=== PATIENT | male | born 1990 | race African-American/Black ===

== ENCOUNTER 2016-08-10 21:36 | Emergency (ER) | payer OTHER ==
[2016-08-10 21:49] VITALS: BP 121/79
--- NOTE | 2016-08-10 22:27 | ED EYE COMPLAINT ---
History of Present Illness General Chief Complaint: Eye Problems Stated Complaint: L EYE REDNESS/PAINFUL Source: patient, family Exam Limitations: no limitations Vital Signs & Intake/Output Vital Signs & Intake/Output Vital Signs Date Time Temp Pulse Resp B/P B/P Pulse O2 O2 Flow FiO2 Mean Ox Delivery Rate 08/10 2218 Room Air 08/10 2149 97.9 77 16 121/79 99 Room Air ED Intake and Output 08/11 0000 08/10 1200 Intake Total Output Total Balance Patient 228 lb Weight Weight Standing Scale Measurement Method Allergies Coded Allergies: No Known Allergies (08/10/16) Reconcile Medications Tobramycin/Lotepred Etab (Zylet Eye Drops) 0.3 %-0.5 % DROPS.SUSP 1 GTT OPH 4 TIMES/DAY CONJUNCIVITIS Triage Note: TRIAGE: DIAGNOSED WITH CONJUNCTIVITIS ON MONDAY 08/07, TOOK TOBRADEX EYE GTT FOR ONLY ONE DAY AND DAUGHTER MISPLACED BOTTLE. HAS NOT HAD A DOSE SINCE, AND ARRIVES WITH PAIN TO LEFT EYE, SIGNIFICANT SCLERAL REDNESS AND TEARING. UNABLE TO REFILL RX DUE TO INSURANCE ISSUES. DENIES VISUAL CHANGES. BOTH PUPILS REACTIVE TO LIGHT, ON ASSESSMENT, RIGHT PUPIL > LEFT. Triage Nurses Notes Reviewed? yes HPI: Patient presents with left eye redness. Patient denies any pain however he did tell them in triage that he was having pain, the patient adamantly denies any pain. He states that he was seen in urgent care today and was put on TobraDex. He states that the eyedrop was working but then he lost the bottle and has been out of it for the past 2 days. Patient states that the redness has come back. Patient states that when he isn't brightly is a high tears. There is no foreign body sensation. There is no blurry vision. No headache. There is no nausea or vomiting. Past History Travel History Traveled to [place] past 21 day No Medical History Any Pertinent Medical History? none Neurological: NONE EENT: NONE Cardiovascular: NONE Respiratory: NONE Gastrointestinal: NONE Hepatic: NONE Renal: NONE Musculoskeletal: NONE Psychiatric: NONE Endocrine: NONE Blood Disorders: NONE Cancer(s): NONE Surgical History Surgical History: non-contributory Psychosocial History What is your primary language Afghan Tobacco Use: Never used ETOH Use: denies use Illicit Drug Use: denies illicit drug use Family History Hx Contributory? No Review of Systems Review of Systems Constitutional: Reports: no symptoms. Eyes: Reports: see HPI, inflammation. Throat: Reports: no symptoms. Respiratory: Reports: no symptoms. Cardiovascular: Reports: no symptoms. Neurological/Psychological: Reports: no symptoms. Physical Exam General Appearance: well developed/nourished, alert, awake, anxious General Inspection: normal inspection Eyelid: normal inspection, everted for exam Conjunctiva/Sclera: injected Cornea: normal inspection EOM: intact Pupil: normal accommodation Anterior Chamber: normal inspection General Inspection: normal inspection Eyelid: normal inspection Conjunctiva/Sclera: normal inspection Cornea: examined w/fluorescein EOM: intact Pupil: normal accommodation, normal pupil, PERRL Physical Exam Head: atraumatic, normal appearance Ears: Bilateral: canal normal, Tympanic normal. Cardiovascular/Respiratory: normal breath sounds, normal peripheral pulses, regular rate/rhythm, no respiratory distress Neurologic/Psych: no motor/sensory deficits, awake, alert, oriented x 3, normal gait Progress Differential Diagnosis: corneal foreign body, conjunctivitis Plan of Care: EYE DROPS Departure Departure Disposition: HOME OR SELF CARE Condition: Stable Clinical Impression Primary Impression: Conjunctivitis Referrals: KATHLEEN THOMPSON MD (PCP/Family) KAYLAH POWELL,KENNA King Additional Instructions: FOLLOW UP WITH DR. ADRIAN RETURN FOR ANY CONCERNS Departure Forms: Customer Survey General Discharge Information Prescriptions: Current Visit Scripts Tobramycin/Lotepred Etab (Zylet Eye Drops) 1 GTT OPH 4 TIMES/DAY #5 ML
[2016-08-10] MEDS ORDERED: ZYLET EYE DROPS5 ML OPH (22:54)
== END 2016-08-10 23:11 ==
LOC: ERH 21:36
DX: H10.9 Unspecified conjunctivitis (principal)